=== PATIENT | female | born 1955 | race Caucasian/White ===

== ENCOUNTER 2016-07-03 06:28 | Day surgery (SDC) | payer BC ==
[~2016-07-03] VITALS: Ht 152.4 cm; Wt 65.4 kg
[2016-07-03 06:59] VITALS: Ht 152.4 cm; Wt 65.4 kg
[2016-07-03] MEDS ORDERED: DILT120C79 PO (07:07)
[2016-07-03] MEDS ORDERED: SIMV-39 PO (07:07)
[2016-07-03] MEDS ORDERED: CITA-104 PO (07:07)
[2016-07-03 07:27] VITALS: BP 132/72; PULSE 66; RESP 18
[2016-07-03] MEDS ORDERED: PROPOFOL 20 ML ONE (07:37)
[2016-07-03 08:40] VITALS: BP 133/62; PULSE 72; RESP 20
--- NOTE | 2016-07-03 08:50 | GILP ---
DATE OF PROCEDURE: NAME OF PROCEDURES: Colonoscopy and biopsy. SURGEON: Ayah Adams MD PREOPERATIVE DIAGNOSIS: Screening colonoscopy. POSTOPERATIVE DIAGNOSES 1. Colonoscopy all the way to the cecum. 2. Small transverse colon polyp was removed using the biopsy forceps. 3. Internal hemorrhoids. INDICATION FOR THE PROCEDURE: Ms. Andree Maza is a 60-year-old female patient who was scheduled f or screening colonoscopy. The procedure and possible complications were well explained to the patient. The patient understood and consented to the procedure. DESCRIPTION OF PROCEDURE: Under the influence of anesthesia, the colonoscope was carefully introduc ed in the rectum and under direct vision, it was advanced all the way to the cecum. FINDINGS: The patient had a small transverse colon polyp and it was removed using the biopsy forcep s. She was noted to have small internal hemorrhoids. She tolerated the procedure very well and there was no complication from the procedures. At the end of the procedures, she was awake with stable vital signs and she was discharged home to the care of her family. IMPRESSION: 1. Colonoscopy all the way to the cecum. 2. Small transverse colon polyp was removed using the biopsy forceps. 3. Small internal hemorrhoids. PLAN: Next screening colonoscopy in 10 years. Dictated By: AYAH CARMICHAEL/JOE Conf#: [id number] DID#: [id number] CC: KVNG LINDA MD;*EndCC*
--- NOTE | 2016-07-04 12:16 | CONS ---
DATE OF ADMISSION: 07/03/2016 DATE OF CONSULTATION: TYPE OF CONSULTATION: Preoperative gastroenterology. Dear Dr. Hennessy: I thank you very much for this kind referral. HISTORY OF PRESENT ILLNESS: Ms. Andree Maza is a 60-year-old female patient who has been referred to me for further evaluation of change in the bowel habit with occasional rectal bleeding. There i s no past history of colon neoplasm. The patient never had screening colonoscopy. Her appetite has been good and she is not losing any weight. She does not have any upper abdominal pain, nausea, or vomiting. There is no history of peptic ulcer disease. She is not taking any nonsteroidal anti-in flammatory agents. There is no history of gallstones. She does not have any fever, chills, or debra dice. There is no history of liver disease. She is hypertensive. She is not a diabetic. She does not have any heart disease or lung problem. There is no history of kidney disease. She has hyperl ipidemia. The patient also has anxiety disorder, and she is on medications. She is status post hys terectomy and appendectomy. SOCIAL HISTORY: She is a nonsmoker. She does not abuse alcohol. FAMILY HISTORY: Negative for gastrointestinal tract neoplasm. ALLERGIES: THERE IS NO HISTORY OF SIGNIFICANT DRUG ALLERGY. MEDICATIONS: 1. Diltiazem. 2. Simvastatin. 3. Citalopram. PHYSICAL EXAMINATION: VITAL SIGNS: She is 5 feet tall and she weighs 142 pounds. HEART: Examination of the heart reveals normal first and second heart sounds. LUNGS: Clear. ABDOMEN: Soft without any distention. Liver and spleen are not palpable. There are no masses. Th ere is no focal tenderness. Normal bowel sounds are heard. RECTAL: Examination deferred per the patient's request. It will be done at the time of colonoscopy . CENTRAL NERVOUS SYSTEM: Does not reveal any focal neurological deficit. IMPRESSION: 1. Change in the bowel habit. 2. History of occasional rectal bleeding. 3. The patient never had screening colonoscopy. 4. Hypertension. 5. Hyperlipidemia. 6. Anxiety disorder. 7. Status post hysterectomy. 8. Status post appendectomy. PLAN: 1. Screening colonoscopy. 2. Because of the anxiety disorder, the patient will need monitored anesthesia care for the procedu re. The procedure and possible complications are well explained to the patient. She understands and con sents to the procedure. I thank you once again. With warmest personal regards, Dictated By: MARISSA HARE MD GD/NTS Conf#: [id number] DID#: [id number] CC: MARISSA HARE MD;*EndCC*
== END 2016-07-03 08:16 | disposition home or self-care (01) ==
LOC: GIL 06:28
PROVIDERS: ATTEND Internal Medicine Gastroenterology
DX: Z12.11 Encounter for screening for malignant neoplasm of colon (principal); D12.3 Benign neoplasm of transverse colon; K64.8 Other hemorrhoids; E78.5 Hyperlipidemia, unspecified; I10 Essential (primary) hypertension; F41.9 Anxiety disorder, unspecified